=== PATIENT | male | born 1960 | race Hispanic/Latino ===

== ENCOUNTER 2018-04-02 15:27 | Emergency (ER) | payer BC ==
--- NOTE | 2018-04-02 15:52 | ED.PDOC ---
History of Present Illness - General Chief Complaint: Abdominal Pain Stated Complaint: right lower abdominal pain Time Seen by Provider: 04/02/18 15:52 Information Source: patient Exam Limitations: no limitations - History of Present Illness Initial Comments: Salvador Torres 58 y/o male stated that he had been having sharp right lower quadrant pain 4 days ago getting more constant the last 3 days aggravated by bowel movement and passing out gas.Denies N/V/D,dysuria,hematuria.Stated initially had constipation and took stool softener and after having BM symptoms started.Able to eat but a little bit since if he gets full pain worsens.Also stated had feve,no chills Abdominal Pain Onset Location: RLQ, suprapubic Pain Radiation: no radiation Quality: moderate, intermittent, sharpness Timing/Duration: getting worse, other - see hpi Improving Factors: nothing Worsening Factors: nothing Associated Symptoms: denies symptoms Review of Systems - Review of Systems Constitutional: States: no symptoms reported EENTM: States: no symptoms reported Respiratory: States: no symptoms reported Cardiology: States: no symptoms reported Gastrointestinal/Abdominal: States: see HPI Genitourinary: States: no symptoms reported Musculoskeletal: States: no symptoms reported Skin: States: no symptoms reported Neurological: States: no symptoms reported Endocrine: States: no symptoms reported Hematologic/Lymphatic: States: no symptoms reported Past Medical History (General) - Patient Medical History Hx Stroke: No Hx Congestive Heart Failure: No Hx Diabetes: No Surgical History: no surgical history - Vaccination History Hx Influenza Vaccination: No Hx Pneumococcal Vaccination: No - Social History Hx Tobacco Use: Yes Hx Alcohol Use: No Hx Substance Use: No Hx Physical Abuse: No Hx Emotional Abuse: No Family Medical History - Family History Father Family History: Unknown - ADOPTED Living Status: Unknown Physical Exam - Physical Exam General Appearance: Alert, Comfortable, No apparent distress Eyes, Ears, Nose, Throat Exam: normal ENT inspection, pharynx normal Neck: non-tender, full range of motion, supple, normal inspection Respiratory: chest non-tender, lungs clear, normal breath sounds, no respiratory distress Cardiovascular/Chest: normal peripheral pulses, regular rate, rhythm, no murmur Peripheral Pulses: No deficit Gastrointestinal/Abdominal: normal bowel sounds, soft, tenderness - lower abdominal area no peritoneal signs Male Genitalia: normal genitalia, no hernia, other - uncircumcised,tender prostate right side;firm Rectal Exam: normal rectal tone Back Exam: no CVA tenderness, no vertebral tenderness Extremity: non-tender, no pedal edema, no calf tenderness Neurologic: alert, oriented x 3 Skin Exam: normal color, warm/dry Lymphatic: no adenopathy Progress - Progress Progress: 04/02/18 18:47 Vital Signs - 24 hr 04/02/18 04/02/18 15:44 17:41 Temperature 97.9 F Pulse Rate [ 90 81 Left Brachial] Respiratory 20 20 Rate Blood Pressure 153/94 101/53 [Left Arm] O2 Sat by Pulse 99 100 Oximetry - Results/Orders Results/Orders: Vital Signs - 8 hr 04/02/18 04/02/18 15:44 17:41 Temperature 97.9 F Pulse Rate [ 90 81 Left Brachial] Respiratory 20 20 Rate Blood Pressure 153/94 101/53 [Left Arm] O2 Sat by Pulse 99 100 Oximetry 04/02/18 16:10 URINE CULTURE W/COLONY COUNT Stat 04/02/18 16:52 Hold Metformin x 48Hrs [id number] Laboratory Results - last 24 hr 04/02/18 04/02/18 04/02/18 16:00 16:00 16:08 WBC 14.3 H RBC 4.29 L Hgb 13.3 L Hct 38.8 L MCV 90.3 MCH 31.0 MCHC 34.4 RDW 12.7 Plt Count 395 MPV 6.8 L Absolute Neuts (auto) 11.90 H Absolute Lymphs (auto) 1.50 Absolute Monos (auto) 0.70 Absolute Eos (auto) 0.00 Absolute Basos (auto) 0.10 Neutrophils % 83.2 H Lymphocytes % 10.5 L Monocytes % 5.2 Eosinophils % 0.3 L Basophils % 0.8 Sodium 135 Potassium 2.8 L Chloride 103 Carbon Dioxide 19 L Anion Gap 15.8 BUN 14 Creatinine 0.96 BUN/Creatinine Ratio 14.6 Random Glucose 301 H Serum Osmolality 281.8 Lactic Acid Calcium 8.6 Total Bilirubin 0.6 AST 27 ALT 37 Alkaline Phosphatase 110 Serum Total Protein 7.5 Albumin 3.3 Globulin 4.2 H Albumin/Globulin Ratio 0.8 L Urine Color Urine Appearance Urine pH Ur Specific [place] Urine Protein Urine Glucose (UA) Urine Ketones Urine Blood Urine Nitrite Urine Bilirubin Urine Urobilinogen Ur Leukocyte Esterase Urine RBC Urine WBC Ur Epithelial Cells Urine Bacteria Urine Mucus Stool Occult Blood Negative 04/02/18 04/02/18 04/02/18 16:10 16:51 18:02 WBC RBC Hgb Hct MCV MCH MCHC RDW Plt Count MPV Absolute Neuts (auto) Absolute Lymphs (auto) Absolute Monos (auto) Absolute Eos (auto) Absolute Basos (auto) Neutrophils % Lymphocytes % Monocytes % Eosinophils % Basophils % Sodium Potassium Chloride Carbon Dioxide Anion Gap BUN Creatinine BUN/Creatinine Ratio Random Glucose Serum Osmolality Lactic Acid 0.8 0.4 L Calcium Total Bilirubin AST ALT Alkaline Phosphatase Serum Total Protein Albumin Globulin Albumin/Globulin Ratio Urine Color Yellow Urine Appearance Sl cloudy Urine pH 5.5 Ur Specific [place] 1.025 Urine Protein 100 H Urine Glucose (UA) 100 H Urine Ketones 15 H Urine Blood Trace-intact H Urine Nitrite Negative Urine Bilirubin Moderate Urine Urobilinogen >= 8.0 H Ur Leukocyte Esterase Small H Urine RBC 1-3 Urine WBC >100 H Ur Epithelial Cells 1-3 Urine Bacteria 1+ Urine Mucus Trace Stool Occult Blood - EKG/XRAY/CT CT Ordered: Yes - abd/p-iflammation seminal vesicle and prostate with suggestion CT Interpretation Call Back: Yes - early abscess formation Departure - Departure Clinical Impression: Acute prostatitis, New onset type 2 diabetes mellitus Abdominal pain Qualifiers: Abdominal location: lower abdomen, unspecified Qualified Code(s): R10.30 - Lower abdominal pain, unspecified Time of Disposition: 18:53 Disposition: Discharge to Home or Self Care Condition: Fair Departure Forms: ED Discharge - Pt. Copy, Patient Portal Self Enrollment Instructions: Prostatitis, Prostatitis (DC), Diabetes Exchange Diet, Diabetes Diet , Diabetes and Infections, Diabetic Meal Planning , Diabetes and Diet, Metabolic Syndrome Diet: diabetic diet Referrals: Matt Woodard III, MD [Primary Care Provider] - 1-2 Weeks Prescriptions: Ciprofloxacin [Cipro] 500 mg PO BID 15 Days #30 tab Glimepiride 2 mg PO ACBK #30 tab Tamsulosin [Flomax] 0.4 mg PO QD #30 cap Home Medications: Ambulatory Orders Ciprofloxacin [Cipro] 500 mg PO BID 15 Days #30 tab 04/02/18 Glimepiride 2 mg PO ACBK #30 tab 04/02/18 Tamsulosin [Flomax] 0.4 mg PO QD #30 cap 04/02/18 Additional Instructions: Return to emergency room as needed;Call up your Md 06 April 2018 for Referral to UROLOGIST
[2018-04-02] MEDS ORDERED: SODIUM CHLORIDE 0.9% 1000ML 1,000 ML IVS ONE (16:53)
[2018-04-02] MEDS ORDERED: POTASSIUM CHLORIDE 20 MEQ TAB PO ONE (16:53)
[2018-04-02] MEDS ORDERED: levoFLOXacin 750MG IV 750 MG in PREMIX BAG 1 BAG IVPB ONE (16:54)
--- NOTE | 2018-04-02 17:49 | CT ---
EXAM DESCRIPTION: Abdomen/Pelvis w/Contrast CLINICAL HISTORY: 58 years Male, abdominal pain COMPARISON: None. TECHNIQUE: Transaxial images were obtained with intravenous contrast medium without oral contrast media. Sagittal and coronal reconstruction was performed.This exam was performed according to our departmental dose-optimization program, which includes automated exposure control, adjustment of the mA and/or kV according to patient size and/or use of iterative reconstruction technique. FINDINGS: The lung bases are clear. The liver is unremarkable. No biliary ductal dilatation is observed. The gallbladder is normal. The spleen is at the upper limits of normal in size. No adrenal masses are detected. The pancreas is normal in appearance. Imaging of the kidneys reveals no evidence of hydronephrosis mass cyst or calcification. No free fluid is observed. Exam reveals inflammatory changes in the region of the right seminal vesicle and prostate. There is low-density centrally in the prostate suggesting the possibility of abscess formation. No inguinal region abnormality is seen. No free fluid is detected. Mild degenerative changes are observed in the lumbar spine. IMPRESSION: 1. The spleen is at the upper limits of normal in size. 2. Inflammatory changes are observed in the right seminal vesicle and prostate. There is central low density in the prostate suggesting abscess formation. Electronically signed by: Matt Contreras MD 04/02/2018 5:48 PM CDT
[2018-04-02] MEDS ORDERED: INSULIN, REG.(HUMAN) 100 U/ML VIAL SUBCU ONE (18:44)
[2018-04-02] MEDS ORDERED: TAMSULOSIN 0.4 MG CAP PO ONE (18:44)
[2018-04-02] MEDS ORDERED: HYDROcodone 10MG/APAP 325MG 1 EA TAB PO ONE (18:46)
[2018-04-02 18:50] VITALS: O2SAT 96
[2018-04-02] MEDS ORDERED: HYDROCOD/APAP 10/325 (ER DISP) # 3 tablets PO ONE (19:01)
[2018-04-02 19:30] VITALS: BP 146/80; TEMP 98.6
== END 2018-04-02 19:28 | disposition home or self-care (01) ==
LOC: ER 15:27
DX: N41.0 Acute prostatitis (principal); E11.9 Type 2 diabetes mellitus without complications; R10.31 Right lower quadrant pain; Z87.891 Personal history of nicotine dependence
CPT/HCPCS: 36415; 74177; 80053; 81001; 82270; 83605; 85025; 87086; J1956; J7030

== ENCOUNTER → 2018-05-25 | Outpatient (CLI) | payer BC | LOC: GMAL 17:29 | PROVIDERS: ATTEND Family Medicine | DX: N41.0 Acute prostatitis (principal) ==

== ENCOUNTER → 2018-08-25 | Outpatient (CLI) | payer BC | LOC: GMAL 14:41 | PROVIDERS: ATTEND Family Medicine | DX: E29.8 Other testicular dysfunction (principal) ==

== ENCOUNTER → 2019-03-25 | Outpatient (CLI) | payer BC | LOC: GMAL 14:24 | PROVIDERS: ATTEND Family Medicine | DX: E29.8 Other testicular dysfunction (principal); I10 Essential (primary) hypertension; E11.9 Type 2 diabetes mellitus without complications; E78.2 Mixed hyperlipidemia ==